=== PATIENT | female | born 1945 | race Caucasian/White ===

== ENCOUNTER 2018-05-15 14:00 | Observation (INO) ==
[2018-05-15] MEDS ORDERED: Sodium Chloride 0.9% 1,000 ML PRIMARY IV ONE (14:20)
[2018-05-15] MEDS ORDERED: ONDANSETRON 4 MG/2 ML VIAL IVP ONE (14:20)
[2018-05-15 14:25] LABS: BASOPHILS # (AUTO) 0.03 10*3/UL; BASOPHILS % (AUTO) 0.5 % (0-1); EOSINOPHILS % (AUTO) 1.6 % (0-8); Hematocrit [HCT] 33.4 % (37.0-47.0); Hemoglobin [HGB] 10.7 g/dL (12.0-16.0); LYMPHOCYTES # (AUTO) 1.52 10*3/uL; MEAN CORPUSCULAR VOLUME 84.3 FL (81-99); MEAN PLATELET VOLUME 10.2 FL (7.4-12.2); MONOCYTES # (AUTO) 0.46 10*3/UL (0.3-0.8); MONOCYTES % (AUTO) 7.4 % (5-15); NEUTROPHILS # (AUTO) 4.06 10*3/UL; NEUTROPHILS % (AUTO) 65.7 % (50-80); RED BLOOD COUNT 3.96 10^6/uL (4.20-5.40)
[2018-05-15 14:27] LABS: PLATELET MORPHOLOGY COMMENT NORMAL MORPHOLOGY (NORM); RBC MORPHOLOGY COMMENT NORMAL MORPHOLOGY (NORM); WBC MORPHOLOGY COMMENT NORMAL MORPHOLOGY (NORM)
--- NOTE | 2018-05-15 14:33 | EKG ---
[address] [address] Measurements Intervals [place] Rate: 62 P: 102 UT: 194 QRS: 69 QRSD: 102 T: 55 QT: 398 QTc: 404 Interpretive Statements ELECTRONIC ATRIAL PACEMAKER ABNORMAL RHYTHM ECG No previous ECG available for comparison Electronically Signed On 05-15-18 16:03:07 MDT by Herman Desai [email or web address]
[2018-05-15 14:34] LABS: BLOOD UREA NITROGEN 24 mg/dL (7-22); SERUM ALBUMIN 4.5 g/dL (3.5-4.8)
[2018-05-15] MEDS ORDERED: Magnesium Sulfate 2gm (Premix) 2 GM/50 ML BAG IV ONE (15:14)
--- NOTE | 2018-05-15 15:28 | DI ---
CT Head WO Contrast,05/15/2018 2:20 PM: Clinical History: Headache and dizziness Previous Exam: None at this facility. Findings: Multiple helically acquired CT images are obtained through the brain without contrast, and demonstrat e diffuse age-related volume loss. There is no mass, hemorrhage or midline shift. The surrounding sof t tissue and osseous structures are unremarkable. The intraorbital structures are unremarkable. The p aranasal sinuses are also unremarkable. Impression: No acute intracranial pathology.
[2018-05-15] MEDS ORDERED: MECLIZINE 25 MG CHEWABLE TABLET PO ONE (15:57)
--- NOTE | 2018-05-15 16:15 | PDOC ---
General Adult HPI - General Chief Complaint: Altered Mental Status Stated Complaint: SHORTNESS OF BREATH AND CONFUSION Date Seen by Provider: 05/15/18 Time Seen by Provider: 14:15 Source: POSITIVE: Patient, EMS Exam Limitations: POSITIVE: No limitations Nurse's Notes Reviewed & Considered: Yes EMS Report Reviewed & Considered: Verbal - History of Present Illness Initial Comment: The patient is a 72-year-old female who is brought to the emergency department by ambulance from [place] with complaints of dizziness, generalized weakness and headache. She has a history of multiple medical problems including diabetes , congestive heart failure, chronic atrial fibrillation and previous CVA and TIAs. She previously was living in [place] and is in the process of moving to [place]. She states that her medications got packed during the moving process and she has been unable to take any of her medications for the past 3 days. Over the past couple of days she has developed progressively worsening dizziness, general malaise, nausea and worsening headache. She also had some increased shortness of breath. She denies any current chest pain. She has not had any fevers or chills. She is unsure of what medications she is taking however she does know that she takes Xarelto. She also takes Effexor for depression. She denies any change in vision or focal numbness or weakness in her arms or legs. She does have some residual difficulty with her speech as well as some left-sided weakness from her previous CVA. Have you received a tetanus shot in the past 10 years?: Unknown - Patient Home Medications Home Medications: Home Medications NK 05/15/18 - Patient Allergies Allergies/Adverse Reactions: Allergies 3 Allergy/AdvReac Type Severity Reaction Status Date / Time codeine AdvReac HALLUCINATI Verified 05/15/18 15:06 [facility] Past Medical History - francisca MARROQUIN History: Denies History Cardiovascular History: Hypertension, Arrhythmia, Pacemaker Respiratory History: Denies History Gastrointestinal History: Gallbladder Disease Genitourinary History: Denies History Endocrine History: Type 2 Diabetes (insulin) Musculoskeletal History: Denies History Neurological History: CVA Psychiatric History: Anxiety Disorders History of Sexually Transmitted Diseases: No Cancer History: Denies History In Past Year Been Physically Harmed or Verbally Threatened: No History of MDRO: No History of Other Communicable Diseases: No Tobacco Use: Never Smoker In the Past 12 Months, Have Used or Abuse Any Substance: None Previous Surgical History: Yes Type / Date of Surgery: THUMB REATTACHMENT, GALL BLADDER, HYSTER, PACEMAKER Past Medical History Reviewed: Reviewed - No Changes ROS - Limitations ROS Limitations: No Limitations Constitution: REPORTS: Weakness (Generalized). DENIES: Chills, Fever Cardiovascular: DENIES: Chest Pain Respiratory: REPORTS: Shortness Of Breath Neurological: REPORTS: Confusion, Headache, Dizziness Gastrointestinal: REPORTS: Nausea. DENIES: Abdominal Pain, Vomitting Endocrine: REPORTS: Fatigue Musculoskeletal: DENIES: Lower Extremity Swelling Genitourinary: REPORTS: Denies Symptoms Eyes: REPORTS: Denies Symptoms. DENIES: Vision Changes ENT: REPORTS: Denies Symptoms Skin: DENIES: Rash General Adult Exam - General Appearance General Appearance: POSITIVE: Alert, Cooperative, No Acute Distress - HEENT HEENT: POSITIVE: Head Inspection Nml, Eyes Inspection Nml, Ears Inspection Nml, Nose Inspection Nml, Pharynx Inspect. Nml, PERRL, EOMI - Neck Neck: POSITIVE: Normal Inspection, Lymphadenopathy - Respiratory Respiratory: POSITIVE: No Respiratory Distress, Breath Sounds Normal - Cardiovascular Cardiovascular: POSITIVE: Regular Rate & Rhythm, No Murmur - Abdomen Abdomen: Soft: (All Quadrants), Denies Tenderness: (All Quadrants), No Distention: (All Quadrants) - Skin Skin: POSITIVE: Normal Color, No Rash - Extremities Extremity: Normal ROM: (All Extremities), Normal Inspection: (All Extremities) - Neurological / Psychological Neurological: POSITIVE: Other (No focal neurologic deficits, she does have occasional expressive aphasia and word finding which she states is chronic since her previous stroke however somewhat worse today.) General Adult Progress - Results Reviewed by me Xrays/CTs/US Reviewed by me: Yes Discussed with Radiologist: Yes Radiology Findings: CT scan of her head shows no acute findings. Lab Results Reviewed by Me: Yes Lab Results:: Laboratory Results 3 05/15/18 05/15/18 05/15/18 13:45 13:45 13:45 WBC 6.18 RBC 3.96 L Hgb 10.7 L Hct 33.4 L MCV 84.3 MCH 27.0 MCHC 32.0 L RDW Std Deviation 45.4 RDW Coeff of Radha 15.0 H Plt Count 339 MPV 10.2 Immature Gran % (Auto) 0.2 Neut % (Auto) 65.7 Lymph % (Auto) 24.6 [place] % (Auto) 7.4 Eos % (Auto) 1.6 Baso % (Auto) 0.5 Immature Gran # (Auto) 0.01 Neut # (Auto) 4.06 Lymph # (Auto) 1.52 [place] # (Auto) 0.46 Eos # (Auto) 0.10 Baso # (Auto) 0.03 WBC Morphology Comment Normal morphology Plt Morphology Comment Normal morphology RBC Morph Comment Normal morphology Sodium 141 Potassium 4.0 Chloride 105 Carbon Dioxide 26 Anion Gap 10 BUN 24 H Creatinine 1.0 BUN/Creatinine Ratio 24.00 H Glucose 179 H Calculated Osmolality 299.0 H Calcium 9.0 Magnesium 1.4 L Total Bilirubin 0.1 L AST 25 ALT 38 Alkaline Phosphatase 69 Troponin I 0.012 C-Reactive Protein 0.5 NT-Pro-B Natriuret Pep 620 H Total Protein 7.6 Albumin 4.5 Globulin 3.1 Albumin/Globulin Ratio 1.40 TSH 3 05/15/18 13:45 WBC RBC Hgb Hct MCV MCH MCHC RDW Std Deviation RDW Coeff of Radha Plt Count MPV Immature Gran % (Auto) Neut % (Auto) Lymph % (Auto) [place] % (Auto) Eos % (Auto) Baso % (Auto) Immature Gran # (Auto) Neut # (Auto) Lymph # (Auto) [place] # (Auto) Eos # (Auto) Baso # (Auto) WBC Morphology Comment Plt Morphology Comment RBC Morph Comment Sodium Potassium Chloride Carbon Dioxide Anion Gap BUN Creatinine BUN/Creatinine Ratio Glucose Calculated Osmolality Calcium Magnesium Total Bilirubin AST ALT Alkaline Phosphatase Troponin I C-Reactive Protein NT-Pro-B Natriuret Pep Total Protein Albumin Globulin Albumin/Globulin Ratio TSH 2.44 CBC and BMP: 05/15/18 13:45 05/15/18 13:45 EKG Interpreted/Reviewed By Me:: Yes EKG Interpretation:: POSITIVE: Other (EKG shows a paced rhythm with a rate of 60 , no previous EKGs available for comparison) - Patient's Progress MDM / ED Course: The patient received a 500 mL bolus of normal saline as well as Zofran for nausea. Her EKG shows a paced rhythm at 60. Blood work reveals mild anemia, mildly elevated blood sugar and a low magnesium at 1.4. 2 g of magnesium was ordered IV. Head CT shows no acute findings per radiologist. I did contact her pharmacy in [place] and got an updated medication list. At this point it appears that the majority of her symptoms are likely related to medication withdrawal and specifically from the Effexor. The patient has ongoing dizziness and general malaise and does not feel comfortable going home at this point. 25 mg of meclizine was ordered. I did discuss the patient with Dr. Boudreaux and he is agreed to admit patient for observation. The patient is in agreement with this plan. - Consult Counseled: POSITIVE: Patient, RE: Lab Results, RE: Radiology Results, RE: DX, RE : Need for F/U Patient Care Time - Estimated PCT Patient Care Time (In Minutes): 40 Vital Signs - VS Reviewed Vital Signs Reviewed: Yes Discharge Clinical Impression: Dizziness, Confusion, Hypomagnesemia, Medication withdrawal, Chronic atrial fibrillation, Diabetes Discharge Disposition: Admit to Observation Condition: Fair Follow Up With: NOT IN TABLE, [Primary Care Provider] -
[2018-05-15] MEDS ORDERED: DOCUSATE 100 MG CAPSULE PO PRN (16:55)
[2018-05-15] MEDS ORDERED: LIDOCAINE W/ SODIUM BICARB 0.5 ML SYR SUBD PRN (16:55)
[2018-05-15] MEDS ORDERED: CALCIUM CARBONATE 500 MG (TUMS) CHEWABLE TABLET PO PRN (16:55)
[2018-05-15] MEDS ORDERED: ACETAMINOPHEN 325 MG TABLET PO PRN (16:55)
[2018-05-15] MEDS ORDERED: VENLAFAXINE XR 75 MG CAP PO ONE (17:02)
[2018-05-15] MEDS ORDERED: Rivaroxaban Tab 10 MG TAB PO ONE (17:02)
[2018-05-15] MEDS ORDERED: BUMETANIDE 1 MG TABLET PO ONE (17:02)
[2018-05-15] MEDS ORDERED: PANTOPRAZOLE 40 MG TABLET PO ONE (17:08)
[2018-05-15] MEDS ORDERED: CARVEDILOL 3.125 MG TABLET PO ONE (17:08)
--- NOTE | 2018-05-15 17:19 | PDOC ---
HPI - History of Present Illness Date of Service: 05/15/18 Time of Service: 17:26 Chief Complaint: Dizzy and lightheaded History of Present Illness: This 72-year-old female who recently moved to [place] from [place] 3 days ago. She stated that she called and it was today after she felt dizzy. She went into see about some senior services in the [place] area, and apparently was seen by Wilbarger he used to work as an EMT and they felt that the patient was having a stroke and called 911. Apparently the speech was a little slurred and the patient complained of feeling dizzy. She's had a prior stroke and transient ischemic attack with residual left lower extremity weakness. She has atrial fibrillation and has an atrial pacemaker in place and is on Xarelto, but has not taken any of her medications in the last 3 days. Interestingly, when I review her medications at the emergency room was able to confirm and we are still trying to confirm with her pharmacy in [place], she is also on baclofen and could be going through some withdrawal. She states that her daughter has not been helpful and she moved to [place] for assistance with activities of daily living such as cleaning her house and doing grocery shopping , but she states that her daughter and son-in-law were very tired and have slept all day and have not been willing to help her. She denied any fevers or chills. She complained of nausea and vomiting and vertigo-like symptoms. She' s not had this happen before. She's not sure what her plan will be leaving the hospital. There were no exacerbating factors other than she just stopped taking her medications and she's not been able to locate them in her move. She requested in the emergency room to be observed in the hospital. Past Medical History Medical History: 1. Diabetes mellitus type II. 2. Hypertension. 2. Congestive heart failure. 4. Atrial fibrillation with history of stroke/TIA and left-sided (lower extremity in (residual weakness). 5. Status post atrial pacemaker. 6. Presumably some sort of pain with muscle spasm as she is on baclofen. 7. Hypothyroidism. 8. Obesity. 9. GERD Surgical History: 1. Several left arm surgeries related to left arm injury at age 19. 2. Hysterectomy. 3. Cholecystectomy Pertinent Family History: Significant for diabetes in her parents and grandparents Past Social History: Does not smoke or drink alcohol. Just recently moved [place], [place] from [place] 3 days ago. Has 3 children described as healthy. Tobacco Use: Never Smoker In the Past 12 Months, Have Used or Abuse Any of the Following Substance: None Alcohol Use: None Medication / Allergies Home Medications: Home Medications 3 Medication Instructions Recorded Confirmed Type Amlodipine Besylate [Norvasc] 10 mg PO DAILY 05/15/18 05/15/18 History Atorvastatin Calcium [Lipitor] 40 mg PO DAILY 05/15/18 05/15/18 History Baclofen 10 mg PO BID 05/15/18 05/15/18 History Bumetanide Tab [Bumex Tab] 1 mg PO DAILY 05/15/18 05/15/18 History Carvedilol [Coreg] 3.125 mg PO BID 05/15/18 05/15/18 History Furosemide [Lasix] 40 mg PO DAILY 05/15/18 05/15/18 History Levothyroxine Sodium [Levothroid] 100 mcg PO DAILY 05/15/18 05/15/18 History Lidocaine Patch 5% [Lidoderm Patch 700 mg TOPICAL DAILY 05/15/18 05/15/18 History 5%] Losartan/Hydrochlorothiazide 1 tab PO DAILY 05/15/18 05/15/18 History [Losartan-Hctz 50-12.5 mg Tab] Metformin HCl 1,000 mg PO BID 05/15/18 05/15/18 History Olopatadine HCl [Pataday] 2.5 ml EACH EYE DAILY 05/15/18 05/15/18 History Omeprazole [Prilosec] 40 mg PO DAILY 05/15/18 05/15/18 History Ranitidine HCl [Zantac] 300 mg PO DAILY 05/15/18 05/15/18 History Rivaroxaban [Xarelto] 20 mg PO DAILY 05/15/18 05/15/18 History Sucralfate [Carafate] 1 gm PO Q6H 05/15/18 05/15/18 History Venlafaxine HCl [Effexor Xr] 150 mg PO DAILY 05/15/18 05/15/18 History Allergies/Adverse Reactions: Allergies 3 Allergy/AdvReac Type Severity Reaction Status Date / Time codeine AdvReac HALLUCINATI Verified 05/15/18 15:06 ONS Review of Systems - Constitutional Constitutional: REPORTS: General Health Poor (She states that she has trouble with her activities of daily living such as cleaning her house and doing grocery shopping.) - Ear/Nose Exam Ear/Nose Exam: REPORTS: Negative System Review - Mouth/Throat Mouth/Throat Exam: REPORTS: Negative System Review - Respiratory Respiratory: REPORTS: Negative System Review - Cardiovascular Cardiovascular: REPORTS: Other (States she has congestive heart failure and feels like she gained some fluid weight.) - Gastrointestinal Gastrointestinal / Abdominal: REPORTS: Nausea, Vomiting, Heartburn - Genitourinary Genitourinary: REPORTS: Other (Has chronic urinary frequency.) - Musculoskeletal Musculoskeletal: REPORTS: Negative System Review - Neurological Neurologic: REPORTS: Headache, Dizziness, Other (Has history of TIA and stroke with left-sided lower extremity weakness) - Psychiatric Psychiatric: REPORTS: Negative System Review Exam - Vitals Vital Signs: Vital Signs Height 5 ft 6 in Weight 257 lb Vital Signs (24 hrs) Temp Pulse Resp BP Pulse Ox 05/15/18 17:00 97.8 F 68 16 158/73 92 05/15/18 16:55 92 05/15/18 16:34 63 16 - General General Appearance: No Acute Distress, Cooperative - Head Head Exam: Normal Inspection, Normocephalic, Atraumatic - Eye Eye Exam: POSITIVE: No Scleral Icterus - ENT ENT Exam: POSITIVE: Mucous Membranes Dry - Neck Neck Exam: Normal Inspection, No Tenderness, No Lymphadenopathy, No Thyromegaly , JVP is not Raised - Respiratory Respiratory Exam: POSITIVE: Clear to Auscultation - Bilaterally, Breathing Non Labored, Normal to Percussion and Palpation - Cardiovascular Cardiovascular Exam: POSITIVE: RRR, No Murmur, No Clicks, No Gallops, No Rubs, No JVD - GI/Abdominal GI/Abdominal Exam: POSITIVE: Normal Bowel Sounds, Non Tender, Non Distended, Soft - Rectal Rectal Exam: POSITIVE: Deferred - External Exam: POSITIVE: Deferred Exam: POSITIVE: Deferred - Extremities Extremities Exam: POSITIVE: No Clubbing Present, No Cyanosis Present, +1 Edema - Back Back Exam: POSITIVE: No CVA Tenderness - Neurological Neurological Exam: POSITIVE: Alert, Oriented x 3, No Facial Droop, Speech Intact / Clear, Moves All Extremities Equally - Psychiatric Psychiatric Exam: POSITIVE: Anxious - Integumentary Integumentary Exam: POSITIVE: Normal Color, Warm, Dry, Intact - Central Line Examination Central Line Present on Admission: No Results - Labs CBC and BMP: 05/15/18 13:45 05/15/18 13:45 Additional Lab Results: Laboratory Results 05/15/18 05/15/18 05/15/18 Range/Units 13:45 13:45 13:45 WBC 6.18 (4.8-10.8) 10^3/uL RBC 3.96 L (4.20-5.40) 10^6/uL Hgb 10.7 L (12.0-16.0) g/dL Hct 33.4 L (37.0-47.0) % MCV 84.3 (81-99) FL MCH 27.0 (27-31) PG MCHC 32.0 L (33-37) g/dL RDW Std Deviation 45.4 (39-50) fL RDW Coeff of Radha 15.0 H (11.5-14.5) % Plt Count 339 (140-350) 10*3/uL MPV 10.2 (7.4-12.2) FL Immature Gran % (Auto) 0.2 (0-5) % Neut % (Auto) 65.7 (50-80) % Lymph % (Auto) 24.6 (10-50) % [place] % (Auto) 7.4 (5-15) % Eos % (Auto) 1.6 (0-8) % Baso % (Auto) 0.5 (0-1) % Immature Gran # (Auto) 0.01 10*3/UL Neut # (Auto) 4.06 10*3/UL Lymph # (Auto) 1.52 10*3/uL [place] # (Auto) 0.46 (0.3-0.8) 10*3/UL Eos # (Auto) 0.10 10*3/UL Baso # (Auto) 0.03 10*3/UL WBC Morphology Comment Normal morphology (NORM) Plt Morphology Comment Normal morphology (NORM) RBC Morph Comment Normal morphology (NORM) Sodium 141 (135-145) meq/L Potassium 4.0 (3.8-5.2) meq/L Chloride 105 (98-112) meq/L Carbon Dioxide 26 (23-33) meq/L Anion Gap 10 (5-20) BUN 24 H (7-22) mg/dL Creatinine 1.0 (0.50-1.20) mg/dL BUN/Creatinine Ratio 24.00 H (6-20) Glucose 179 H (78-110) mg/dL Calculated Osmolality 299.0 H (267-292) mOsm/kg Calcium 9.0 (8.7-10.7) mg/dL Magnesium 1.4 L (1.6-2.4) mg/dL Total Bilirubin 0.1 L (0.3-1.2) mg/dL AST 25 (8-39) IU/L ALT 38 (9-52) IU/L Alkaline Phosphatase 69 (38-126) IU/L Troponin I 0.012 (< 0.040) ng/mL C-Reactive Protein 0.5 (0.0-0.9) mg/dL NT-Pro-B Natriuret Pep 620 H (0-125) PG/ML Total Protein 7.6 (6.1-8.0) g/dL Albumin 4.5 (3.5-4.8) g/dL Globulin 3.1 (2.50-4.10) g/dL Albumin/Globulin Ratio 1.40 (1.3-2.0) mg/g TSH (0.2700-4.2000) uIU/mL 05/15/18 Range/Units 13:45 WBC (4.8-10.8) 10^3/uL RBC (4.20-5.40) 10^6/uL Hgb (12.0-16.0) g/dL Hct (37.0-47.0) % MCV (81-99) FL MCH (27-31) PG MCHC (33-37) g/dL RDW Std Deviation (39-50) fL RDW Coeff of Radha (11.5-14.5) % Plt Count (140-350) 10*3/uL MPV (7.4-12.2) FL Immature Gran % (Auto) (0-5) % Neut % (Auto) (50-80) % Lymph % (Auto) (10-50) % [place] % (Auto) (5-15) % Eos % (Auto) (0-8) % Baso % (Auto) (0-1) % Immature Gran # (Auto) 10*3/UL Neut # (Auto) 10*3/UL Lymph # (Auto) 10*3/uL [place] # (Auto) (0.3-0.8) 10*3/UL Eos # (Auto) 10*3/UL Baso # (Auto) 10*3/UL WBC Morphology Comment (NORM) Plt Morphology Comment (NORM) RBC Morph Comment (NORM) Sodium (135-145) meq/L Potassium (3.8-5.2) meq/L Chloride (98-112) meq/L Carbon Dioxide (23-33) meq/L Anion Gap (5-20) BUN (7-22) mg/dL Creatinine (0.50-1.20) mg/dL BUN/Creatinine Ratio (6-20) Glucose (78-110) mg/dL Calculated Osmolality (267-292) mOsm/kg Calcium (8.7-10.7) mg/dL Magnesium (1.6-2.4) mg/dL Total Bilirubin (0.3-1.2) mg/dL AST (8-39) IU/L ALT (9-52) IU/L Alkaline Phosphatase (38-126) IU/L Troponin I (< 0.040) ng/mL C-Reactive Protein (0.0-0.9) mg/dL NT-Pro-B Natriuret Pep (0-125) PG/ML Total Protein (6.1-8.0) g/dL Albumin (3.5-4.8) g/dL Globulin (2.50-4.10) g/dL Albumin/Globulin Ratio (1.3-2.0) mg/g TSH 2.44 (0.2700-4.2000) uIU/mL - EKG Data -: EKG Interpreted by Me Rate: Normal EKG Shows Normal: Sinus Rhythm - Imaging Status: Image Reviewed by Me (Head CT scan on my view does not show any blood. 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 Current Visit: Yes Status: Acute Code(s): F19.239 - Other psychoactive substance dependence with withdrawal, unspecified (2) Medical non-compliance Current Visit: Yes Status: Acute Code(s): Z91.19 - Patient's noncompliance with other medical treatment and regimen (3) Dizziness Current Visit: Yes Status: Acute Code(s): R42 - Dizziness and giddiness (4) Congestive heart failure Current Visit: Yes Status: Acute Code(s): I50.9 - Heart failure, unspecified Qualifiers: Heart failure type: unspecified Heart failure chronicity: chronic Qualified Code(s): I50.9 - Heart failure, unspecified (5) Hypertension Current Visit: Yes Status: Acute Code(s): I10 - Essential (primary) hypertension Qualifiers: Hypertension type: essential hypertension Qualified Code(s): I10 - Essential (primary) hypertension (6) Diabetes mellitus type II, controlled Current Visit: Yes Status: Acute Code(s): E11.9 - Type 2 diabetes mellitus without complications Qualifiers: Diabetes mellitus mcfp insulin use: without termite technician use Diabetes mellitus complication status: without complication Qualified Code(s): E11.9 - Type 2 diabetes mellitus without complications (7) Atrial fibrillation Current Visit: Yes Status: Acute Code(s): I48.91 - Unspecified atrial fibrillation Qualifiers: Atrial fibrillation type: chronic Qualified Code(s): I48.2 - Chronic atrial fibrillation (8) Muscle spasm Current Visit: Yes Status: Acute Code(s): M62.838 - Other muscle spasm (9) Hypothyroidism Current Visit: Yes Status: Acute Code(s): E03.9 - Hypothyroidism, unspecified Qualifiers: Hypothyroidism type: acquired Qualified Code(s): E03.9 - Hypothyroidism, unspecified (10) History of CVA (cerebrovascular accident) Current Visit: Yes Status: Chronic Code(s): Z86.73 - Personal history of transient ischemic attack (TIA), and cerebral infarction without residual deficits - Assessment / Plan Additional Assessment/Plan Details: Admit the patient from sedation. When I review her medications, I think she is withdrawing from both the Effexor and baclofen and that is predominantly the symptoms that she is experiencing at this time with headache, nausea and vomiting, and overall restlessness. I don't think she's had a stroke, but given that somebody noticed some slurred speech or think it would be reasonable to do a CTA of the head and neck to make sure. She is not a candidate for an MRI. Resume medications. Get social insurance analyst involved tomorrow to try and figure out how we can help this patient resume living as independently as possible post hospital stay-- perhaps an assisted living if the patient's family is not going to be very helpful. I'll go ahead and stop Bumex at this point just continue with Lasix on a twice a day basis. Hold off on KP inhibitor for now given that I will do a contrast study and also hold metformin. Blood sugars before meals and at bedtime with sliding scale corrective dose insulin. Full code. The patient and I discussed her workup, situation from a social perspective, and I discussed candidly with the patient that she does need to think about her living situation, family support, and assisted living as potential options and she agreed with the plan above. She told me that she might think about moving back to [place] or [place] into an assisted living and she stated that she felt like she would probably have the resources to do that. In the meantime, I will also check an drainage at a peptide to make sure that were not dealing with overt congestive heart failure but I do think that a lot of these issues will be solved by resuming the baclofen and Effexor. Hopefully we can get the patient off of the Effexor. I'm also going to hold off on giving her eyedrops and I'm going to stop the Carafate altogether.
[2018-05-15] MEDS ORDERED: Hold Metformin-See Instruction 1 EACH MIS PRN (17:45)
[2018-05-15] MEDS ORDERED: Glucagon Inj Vial 1 MG/ML VIAL IM PRN (17:48)
[2018-05-15] MEDS ORDERED: DEXTROSE 50%-WATER SYRINGE 50 ML SYRINGE IVP PRN (17:48)
[2018-05-15] MEDS ORDERED: DEXTROSE 31 GM GEL PO PRN (17:48)
[2018-05-15] MEDS ORDERED: Insulin Sliding Scale Protocol SUBCUT PRN (17:48)
--- NOTE | 2018-05-15 19:55 | DI ---
CT CTA Neck WWO Contrast,05/15/2018 5:46 PM: Clinical History: Slurred speech and possible stroke. Previous Exam: None at this facility. Findings: Multiple helically acquired CT images are obtained through the neck following a CT angiogram of the n felisha, and demonstrate normal skull base. Intraorbital structures and paranasal sinuses are unremarkabl e. The parapharyngeal fat is normal and symmetric. The common carotid arteries are within normal limits bilaterally. There are a few vascular calcificat ions within the carotid bulbs bilaterally but without any significant stenosis. The internal carotid arteries demonstrate normal course, caliber and enhancement pattern. The vertebral arteries are diminutive bilaterally but are within normal limits without evidence of di ssection. There are diffuse degenerative changes of the cervical spine without fractures. The basilar artery is normal. Impression: No hemodynamically significant stenosis. Diffuse degenerative changes of the cervical spine.
[2018-05-15 20:15] LABS: BILIRUBIN,URINE NEGATIVE (NEG); CLARITY,URINE CLEAR (CLEAR); COLOR,URINE YELLOW (Y); GLUCOSE, URINE (UA) NEGATIVE (NEG); OCCULT BLOOD,URINE NEGATIVE (NEG); PROTEIN,URINE NEGATIVE (NEG); UROBILINOGEN,URINE 0.2 EU/dL (0.2)
[2018-05-15 20:25] LABS: SQUAMOUS EPITHELIAL CELL,UR RARE; URINE SAMPLE TYPE VOIDED SPECIMEN; WBC,URINE 0-1
[2018-05-15] MEDS: CARVEDILOL 3.125 MG TABLET PO SCH (20:55)
[2018-05-15] MEDS: BACLOFEN 20 MG TABLET PO SCH (20:55)
[2018-05-15] MEDS: Insulin Lispro Flexpen 300 UNIT/3 ML INSULN.PEN SUBCUT SCH (20:56)
[2018-05-15] MEDS ORDERED: Patch Removal LIDOCAINE PATCH TRANSDERM SCH (21:00)
[2018-05-15] MEDS ORDERED: ATORVASTATIN 40 MG TABLET PO SCH (21:00)
[2018-05-16] MEDS: ONDANSETRON 4 MG/2 ML VIAL IVP PRN ×2 (03:18→11:24)
[2018-05-16 05:26] LABS: BLOOD UREA NITROGEN 21 mg/dL (7-22); BUN/CREATININE RATIO 23.33 (6-20)
[2018-05-16] MEDS ORDERED: LEVOTHYROXINE 100 MCG TABLET PO SCH (05:30)
[2018-05-16] MEDS ORDERED: BUMETANIDE 1 MG TABLET PO SCH ×2 (07:00→09:00)
[2018-05-16] MEDS ORDERED: PANTOPRAZOLE 40 MG TABLET PO SCH (07:00)
[2018-05-16] MEDS: BACLOFEN 20 MG TABLET PO SCH (08:13)
[2018-05-16] MEDS: CARVEDILOL 3.125 MG TABLET PO SCH (08:15)
[2018-05-16] MEDS ORDERED: LIDOCAINE 700 MG PATCH TOPICAL SCH (09:00)
[2018-05-16] MEDS ORDERED: VENLAFAXINE XR 75 MG CAP PO SCH (09:00)
[2018-05-16] MEDS ORDERED: Rivaroxaban Tab 10 MG TAB PO SCH (09:00)
--- NOTE | 2018-05-16 09:39 | DI ---
CT CTA Head W/WO CN,05/15/2018 5:46 PM: Clinical History: Slurred speech and possible stroke Previous Exam: CT head performed May 15, 2018 Findings: Multiple helically acquired CT images are obtained through the brain without contrast, and demonstrat e diffuse age-related volume loss. The [place] is within normal limits. The vertebral arteries, basilar artery and posterior ce rebral arteries are within normal limits. Incidental note is made of a origin of the left poste rior cerebral artery. The posterior communicating artery on the right is diminutive. The anterior communicating artery appears to be patent. The anterior cerebral arteries and middle cerebral arteries are grossly normal. Visualized portions o f the distal internal carotid arteries are normal as well. Impression: Normal [place]. Diffuse age-related volume loss.
[2018-05-16] MEDS: Insulin Lispro Flexpen 300 UNIT/3 ML INSULN.PEN SUBCUT SCH ×2 (11:12→12:48)
[2018-05-16 11:34] VITALS: BP 137/56; RESP 19; TEMP 97.8; O2SAT 90
[2018-05-16] MEDS ORDERED: Influenza 18-19 Vaccine (6mo+) 60 MCG/0.5 ML SYRINGE IM ONE (13:00)
--- NOTE | 2018-05-16 14:11 | DCSUMMARY ---
Hospitalization Summary Admit Date: 05/15/2018 Discharge Date: 05/16/18 Primary Diagnosis:: serotonin withdrawal syndrome Secondary Diagnosis:: Medical noncompliance Hospital Course: This very pleasant 72-year-old female who recently moved to [place], [place] from [place], [place]. She presented to hospital with headaches, nausea and vomiting, and was agitated. Her symptoms were consistent with a serotonin withdrawal syndrome and she stated that she had not been on any of her medications in the past 3 days. She had abruptly stopped Effexor X and also stopped baclofen abruptly. Once we were able to confirm her medications, we resume them, gave her some fluids, replace her magnesium, and today she feels significantly better, she will resume her medications are, and she is ready to go home. She is not sure what her ultimate living situation will be, but social welfare administrator was able to involve [facility] to meet with the patient tomorrow to determine how to combat support this patient in the outpatient setting. She has no complaints of chest pain or shortness of breath. She has no nausea or vomiting. Assessment and Plan: 1. As per discharge assessments noted 2. Disposition: Patient is discharged home. 3. Condition on discharge, stable and improved. 4. Diet: regular diet 5. Activities: resume normal activities 6. Follow-Up: 1. I advised patient to [facility] with [facility] as she had priorly seen them and handed over records to them. But she could pick any provider she wants and see them in 7 days. 2. 7. Medications at the Time of Discharge: Exam - Vitals Vital Signs: Vital Signs Temperature 97.8 F Temperature Source Temporal Artery Scan Pulse Rate [Pulse Oximeter] 60 Respiratory Rate 19 Blood Pressure [Right Arm] 137/56 Pulse Ox 90 Oxygen Flow Rate 2 Oxygen Delivery Method Room Air Height 5 ft 6 in Weight 249 lb 3.2 oz - General General Appearance: No Acute Distress, Cooperative - Head Head Exam: Normal Inspection, Normocephalic, Atraumatic - Eye Eye Exam: POSITIVE: No Scleral Icterus - ENT ENT Exam: POSITIVE: Mucous Membranes Moist - Respiratory Respiratory Exam: POSITIVE: Clear to Auscultation - Bilaterally, Breathing Non Labored - Cardiovascular Cardiovascular Exam: POSITIVE: RRR, No Murmur, No Clicks, No Gallops, No Rubs, No JVD - GI/Abdominal GI/Abdominal Exam: POSITIVE: Normal Bowel Sounds, Non Tender, Non Distended, Soft - Extremities Extremities Exam: POSITIVE: No Clubbing Present, No Edema Present, No Cyanosis Present - Neurological Neurological Exam: POSITIVE: Alert, Oriented x 3, No Facial Droop, Speech Intact / Clear, Moves All Extremities Equally - Psychiatric Psychiatric Exam: POSITIVE: Normal Affect, Normal Mood Data Peritnent Studies: Laboratory Results 05/15/18 05/15/18 05/15/18 Range/Units 13:45 13:45 13:45 WBC 6.18 (4.8-10.8) 10^3/uL RBC 3.96 L (4.20-5.40) 10^6/uL Hgb 10.7 L (12.0-16.0) g/dL Hct 33.4 L (37.0-47.0) % MCV 84.3 (81-99) FL MCH 27.0 (27-31) PG MCHC 32.0 L (33-37) g/dL RDW Std Deviation 45.4 (39-50) fL RDW Coeff of Radha 15.0 H (11.5-14.5) % Plt Count 339 (140-350) 10*3/uL MPV 10.2 (7.4-12.2) FL Immature Gran % (Auto) 0.2 (0-5) % Neut % (Auto) 65.7 (50-80) % Lymph % (Auto) 24.6 (10-50) % Kerr % (Auto) 7.4 (5-15) % Eos % (Auto) 1.6 (0-8) % Baso % (Auto) 0.5 (0-1) % Immature Gran # (Auto) 0.01 10*3/UL Neut # (Auto) 4.06 10*3/UL Lymph # (Auto) 1.52 10*3/uL Kerr # (Auto) 0.46 (0.3-0.8) 10*3/UL Eos # (Auto) 0.10 10*3/UL Baso # (Auto) 0.03 10*3/UL WBC Morphology Comment Normal morphology (NORM) Plt Morphology Comment Normal morphology (NORM) RBC Morph Comment Normal morphology (NORM) Sodium 141 (135-145) meq/L Potassium 4.0 (3.8-5.2) meq/L Chloride 105 (98-112) meq/L Carbon Dioxide 26 (23-33) meq/L Anion Gap 10 (5-20) BUN 24 H (7-22) mg/dL Creatinine 1.0 (0.50-1.20) mg/dL BUN/Creatinine Ratio 24.00 H (6-20) Glucose 179 H (78-110) mg/dL Calculated Osmolality 299.0 H (267-292) mOsm/kg Calcium 9.0 (8.7-10.7) mg/dL Magnesium 1.4 L (1.6-2.4) mg/dL Total Bilirubin 0.1 L (0.3-1.2) mg/dL AST 25 (8-39) IU/L ALT 38 (9-52) IU/L Alkaline Phosphatase 69 (38-126) IU/L Troponin I 0.012 (< 0.040) ng/mL C-Reactive Protein 0.5 (0.0-0.9) mg/dL NT-Pro-B Natriuret Pep 620 H (0-125) PG/ML Total Protein 7.6 (6.1-8.0) g/dL Albumin 4.5 (3.5-4.8) g/dL Globulin 3.1 (2.50-4.10) g/dL Albumin/Globulin Ratio 1.40 (1.3-2.0) mg/g TSH (0.2700-4.2000) uIU/mL Ur Collection Type Urine Color (Y) Urine Clarity (CLEAR) Urine pH (5.0-8.5) Ur Specific [place] (1.005-1.030) Urine Protein (NEG) mg/dl Urine Glucose (UA) (NEG) mg/dL Urine Ketones (NEG) Urine Occult Blood (NEG) Urine Nitrate (NEG) Urine Bilirubin (NEG) Urine Urobilinogen (0.2) EU/dL Ur Leukocyte Esterase (NEG) Urine RBC (NONE) /hpf Urine WBC (NONE) Ur Squamous Epith Cells (NONE) Ur Renal Epithelial Cell (NONE) Urine Crystals Urine Bacteria (NONE) Urine Casts (NONE) Urine Mucus (NONE) Urine Trichomonas (NONE) Urine Yeast (NONE) Ur Culture Indicated? 05/15/18 05/15/18 05/16/18 Range/Units 13:45 20:12 05:00 WBC (4.8-10.8) 10^3/uL RBC (4.20-5.40) 10^6/uL Hgb (12.0-16.0) g/dL Hct (37.0-47.0) % MCV (81-99) FL MCH (27-31) PG MCHC (33-37) g/dL RDW Std Deviation (39-50) fL RDW Coeff of Radha (11.5-14.5) % Plt Count (140-350) 10*3/uL MPV (7.4-12.2) FL Immature Gran % (Auto) (0-5) % Neut % (Auto) (50-80) % Lymph % (Auto) (10-50) % Kerr % (Auto) (5-15) % Eos % (Auto) (0-8) % Baso % (Auto) (0-1) % Immature Gran # (Auto) 10*3/UL Neut # (Auto) 10*3/UL Lymph # (Auto) 10*3/uL Kerr # (Auto) (0.3-0.8) 10*3/UL Eos # (Auto) 10*3/UL Baso # (Auto) 10*3/UL WBC Morphology Comment (NORM) Plt Morphology Comment (NORM) RBC Morph Comment (NORM) Sodium (135-145) meq/L Potassium (3.8-5.2) meq/L Chloride (98-112) meq/L Carbon Dioxide (23-33) meq/L Anion Gap (5-20) BUN (7-22) mg/dL Creatinine (0.50-1.20) mg/dL BUN/Creatinine Ratio (6-20) Glucose (78-110) mg/dL Calculated Osmolality (267-292) mOsm/kg Calcium (8.7-10.7) mg/dL Magnesium 1.9 (1.6-2.4) mg/dL Total Bilirubin (0.3-1.2) mg/dL AST (8-39) IU/L ALT (9-52) IU/L Alkaline Phosphatase (38-126) IU/L Troponin I (< 0.040) ng/mL C-Reactive Protein (0.0-0.9) mg/dL NT-Pro-B Natriuret Pep (0-125) PG/ML Total Protein (6.1-8.0) g/dL Albumin (3.5-4.8) g/dL Globulin (2.50-4.10) g/dL Albumin/Globulin Ratio (1.3-2.0) mg/g TSH 2.44 (0.2700-4.2000) uIU/mL Ur Collection Type Voided specimen Urine Color Yellow (Y) Urine Clarity Clear (CLEAR) Urine pH 6.0 (5.0-8.5) Ur Specific [place] 1.010 (1.005-1.030) Urine Protein Negative (NEG) mg/dl Urine Glucose (UA) Negative (NEG) mg/dL Urine Ketones Negative (NEG) Urine Occult Blood Negative (NEG) Urine Nitrate Negative (NEG) Urine Bilirubin Negative (NEG) Urine Urobilinogen 0.2 (0.2) EU/dL Ur Leukocyte Esterase Small (NEG) Urine RBC None (NONE) /hpf Urine WBC 0-1 (NONE) Ur Squamous Epith Cells Rare (NONE) Ur Renal Epithelial Cell None (NONE) Urine Crystals None Urine Bacteria None (NONE) Urine Casts None (NONE) Urine Mucus None (NONE) Urine Trichomonas None (NONE) Urine Yeast None (NONE) Ur Culture Indicated? Culture not set 05/16/18 Range/Units 05:05 WBC (4.8-10.8) 10^3/uL RBC (4.20-5.40) 10^6/uL Hgb (12.0-16.0) g/dL Hct (37.0-47.0) % MCV (81-99) FL MCH (27-31) PG MCHC (33-37) g/dL RDW Std Deviation (39-50) fL RDW Coeff of Radha (11.5-14.5) % Plt Count (140-350) 10*3/uL MPV (7.4-12.2) FL Immature Gran % (Auto) (0-5) % Neut % (Auto) (50-80) % Lymph % (Auto) (10-50) % Kerr % (Auto) (5-15) % Eos % (Auto) (0-8) % Baso % (Auto) (0-1) % Immature Gran # (Auto) 10*3/UL Neut # (Auto) 10*3/UL Lymph # (Auto) 10*3/uL Kerr # (Auto) (0.3-0.8) 10*3/UL Eos # (Auto) 10*3/UL Baso # (Auto) 10*3/UL WBC Morphology Comment (NORM) Plt Morphology Comment (NORM) RBC Morph Comment (NORM) Sodium 138 (135-145) meq/L Potassium 4.3 (3.8-5.2) meq/L Chloride 105 (98-112) meq/L Carbon Dioxide 29 (23-33) meq/L Anion Gap 4 L (5-20) BUN 21 (7-22) mg/dL Creatinine 0.9 (0.50-1.20) mg/dL BUN/Creatinine Ratio 23.33 H (6-20) Glucose 155 H (78-110) mg/dL Calculated Osmolality 291.0 (267-292) mOsm/kg Calcium 8.4 L (8.7-10.7) mg/dL Magnesium (1.6-2.4) mg/dL Total Bilirubin (0.3-1.2) mg/dL AST (8-39) IU/L ALT (9-52) IU/L Alkaline Phosphatase (38-126) IU/L Troponin I (< 0.040) ng/mL C-Reactive Protein (0.0-0.9) mg/dL NT-Pro-B Natriuret Pep 560 H (0-125) PG/ML Total Protein (6.1-8.0) g/dL Albumin (3.5-4.8) g/dL Globulin (2.50-4.10) g/dL Albumin/Globulin Ratio (1.3-2.0) mg/g TSH (0.2700-4.2000) uIU/mL Ur Collection Type Urine Color (Y) Urine Clarity (CLEAR) Urine pH (5.0-8.5) Ur Specific [place] (1.005-1.030) Urine Protein (NEG) mg/dl Urine Glucose (UA) (NEG) mg/dL Urine Ketones (NEG) Urine Occult Blood (NEG) Urine Nitrate (NEG) Urine Bilirubin (NEG) Urine Urobilinogen (0.2) EU/dL Ur Leukocyte Esterase (NEG) Urine RBC (NONE) /hpf Urine WBC (NONE) Ur Squamous Epith Cells (NONE) Ur Renal Epithelial Cell (NONE) Urine Crystals Urine Bacteria (NONE) Urine Casts (NONE) Urine Mucus (NONE) Urine Trichomonas (NONE) Urine Yeast (NONE) Ur Culture Indicated? 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 Current Visit: Yes Status: Acute Code(s): F19.239 - Other psychoactive substance dependence with withdrawal, unspecified Category: Medical (2) Medical non-compliance Current Visit: Yes Status: Acute Code(s): Z91.19 - Patient's noncompliance with other medical treatment and regimen Category: Medical (3) Dizziness Current Visit: Yes Status: Acute Code(s): R42 - Dizziness and giddiness Category: Medical (4) Congestive heart failure Current Visit: Yes Status: Acute Code(s): I50.9 - Heart failure, unspecified Qualifiers: Heart failure type: unspecified Heart failure chronicity: chronic Qualified Code(s): I50.9 - Heart failure, unspecified Category: Medical (5) Hypertension Current Visit: Yes Status: Acute Code(s): I10 - Essential (primary) hypertension Qualifiers: Hypertension type: essential hypertension Qualified Code(s): I10 - Essential (primary) hypertension Category: Medical (6) Diabetes mellitus type II, controlled Current Visit: Yes Status: Acute Code(s): E11.9 - Type 2 diabetes mellitus without complications Qualifiers: Diabetes mellitus fpc insulin use: without fpc use Diabetes mellitus complication status: without complication Qualified Code(s): E11.9 - Type 2 diabetes mellitus without complications Category: Medical (7) Atrial fibrillation Current Visit: Yes Status: Acute Code(s): I48.91 - Unspecified atrial fibrillation Qualifiers: Atrial fibrillation type: chronic Qualified Code(s): I48.2 - Chronic atrial fibrillation Category: Medical (8) Muscle spasm Current Visit: Yes Status: Acute Code(s): M62.838 - Other muscle spasm Category: Medical (9) Hypothyroidism Current Visit: Yes Status: Acute Code(s): E03.9 - Hypothyroidism, unspecified Qualifiers: Hypothyroidism type: acquired Qualified Code(s): E03.9 - Hypothyroidism, unspecified Category: Medical (10) History of CVA (cerebrovascular accident) Current Visit: Yes Status: Chronic Code(s): Z86.73 - Personal history of transient ischemic attack (TIA), and cerebral infarction without residual deficits Category: Medical
== END 2018-05-16 14:59 | disposition home or self-care (01) ==
LOC: MED/SURG 14:00 → ER 14:00 → MED/SURG 16:24
PROVIDERS: ADMIT Family Medicine; ATTEND Family Medicine